=== PATIENT | female | born 1965 | race Caucasian/White ===

== ENCOUNTER 2017-03-18 16:07 | Emergency (ER) | payer SELFPAY ==
[~2017-03-18] VITALS: Ht 154.9 cm; Wt 70.3 kg
[2017-03-18 16:30] VITALS: BP 188/80
--- NOTE | 2017-03-18 19:24 | NUR ---
PT TAKEN TO TRIPPAY FROM [facility]
--- NOTE | 2017-03-18 19:32 | NUR ---
Rodger barney in ED - 03/18/17 at 1932 by DEXTER PT RETURN FROM XRAY TO LOBBY
--- NOTE | 2017-03-18 20:34 | NUR ---
PT TAKEN TO BED 7
--- NOTE | 2017-03-18 20:34 | NUR ---
Rodger barney in [facility] - 03/18/17 at 2034 by DEXTER PT SANTIAGO TO BED 7
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
--- NOTE | 2017-03-18 21:02 | NUR ---
PT RESTING IN BED AWATING FOR RESULTS NO S/S OF DSITRESS NOTED AT THE MOMENT. VSS.
[2017-03-18] MEDS ORDERED: KETOROLAC 60 MG/2 ML VIAL IM ONE (21:40)
--- NOTE | 2017-03-18 22:18 | NUR ---
Dr. Thibodeaux evaluating patient at bedside.
[2017-03-18 22:28] VITALS: BP 144/90
--- NOTE | 2017-03-18 22:28 | NUR ---
Patient discharged with v/s stable. Written and verbal after care instructions given and explained. Patient alert, oriented and verbalized understanding of instructions. Ambulatory with steady gait. All questions addressed prior to discharge. ID band removed. Patient advised to follow up with PMD THIS WK OR RETURN TO ER IF CONDITION WORSENS. Rx of NORCO, AND MOTRIN given. Patient educated on indication of medication including possible reaction and side effects. Opportunity to ask questions provided and answered.
== END 2017-03-18 22:28 | disposition home or self-care (01) ==
LOC: MED 16:07
DX: S13.4XXA Sprain of ligaments of cervical spine, initial encounter (principal); M25.512 Pain in left shoulder; E11.9 Type 2 diabetes mellitus without complications; I10 Essential (primary) hypertension; V43.62XA Car passenger injured in collision with other type car in traffic accident, initial encounter; Y93.I9 Activity, other involving external motion; Y92.488 Other paved roadways as the place of occurrence of the external cause; Y99.8 Other external cause status
CPT/HCPCS: 73030; 96372; 99284; J1885

== ENCOUNTER 2017-07-28 23:14 | Emergency (ER) | payer SELFPAY ==
[~2017-07-28] VITALS: Ht 149.9 cm; Wt 58.2 kg
[2017-07-28 23:26] VITALS: BP 144/88
[2017-07-28] MEDS ORDERED: ASPI81CT89 PO (23:33)
[2017-07-28] MEDS ORDERED: METF500T PO (23:33)
[2017-07-28] MEDS ORDERED: BENA20TA PO (23:34)
[2017-07-28 23:45] LABS: HEMATOCRIT 42.6 % (36-48); HEMOGLOBIN 14.5 g/dL (12.0-16.0); MEAN CORPUSCULAR HEMOGLOBIN 29 pg (27-31); MEAN CORPUSCULAR HGB CONC 34 g/dL (33-37); MEAN CORPUSCULAR VOLUME 86 fL (80-94); PLATELET COUNT (AUTO) 158 K/uL (140-450); RED BLOOD CELL COUNT(AUTO) 4.97 MIL/uL (4.20-5.40); RED CELL DISTRIBUTION WIDTH 12.2 % (11.6-13.7); WHITE BLOOD COUNT (AUTO) 8.6 K/uL (4.8-10.8)
[2017-07-28 23:55] LABS: EOSINOPHILS % (MANUAL) 1 % (0-4); LYMPHOCYTES % (MANUAL) 32 % (20-46); MONOCYTES % (MANUAL) 7 % (5-12)
[2017-07-28 23:56] LABS: ANION GAP 8.4 (8-16); CARBON DIOXIDE 31.5 mmol/L (21-32); CREATININE 0.5 mg/dL (0.6-1.3); POTASSIUM 3.9 mmol/L (3.5-5.1)
--- NOTE | 2017-07-29 00:05 | NUR ---
PT TAKEN TO CT
--- NOTE | 2017-07-29 00:15 | NUR ---
PT RETURN FROM CT TO BED 6
--- NOTE | 2017-07-29 00:44 | NUR ---
52/F PRESENTS TO ER C/O DIZZINESS AND HEADACHE. PMH DM, HTN. AA&O X4, DIZZINESS, BLURRED VISION. PT DENIES DOUBLE VISION. COUGH X1 DAY, NO SOB AT THIS TIME, BL LUNG SOUNDS CLEAR THROUGHOUT. NAUSEA, DENIES VOMIT AND DIARRHEA, ABDOMEN IS ROUND, SOFT, NON TENDER, BS ACTIVE X4. PT STATES HEADACHE IS 7/10, NON RADIATING, WITH PRESSURE, X1 DAY. PT IN BED WITH FAMILY AT BEDSIDE. ER MD NOTIFED OF PT STATUS.
--- NOTE | 2017-07-29 00:45 | NUR ---
Dr. Moon evaluating patient at bedside
--- NOTE | 2017-07-29 00:50 | NUR ---
PO MEDS GIVEN-NADR AT THIS TIME
[2017-07-29] MEDS ORDERED: MECLIZINE 25 MG TAB PO ONE (00:55)
[2017-07-29 01:16] VITALS: BP 141/82
--- NOTE | 2017-07-29 01:17 | NUR ---
Patient discharged with v/s stable. Written and verbal after care instructions given and explained. Patient alert, oriented and verbalized understanding of instructions. Ambulatory with steady gait. All questions addressed prior to discharge. ID band removed. Patient advised to follow up with PMD. Rx of ANTIVERT given. Patient educated on indication of medication including possible reaction and side effects. Opportunity to ask questions provided and answered.
== END 2017-07-29 01:17 | disposition home or self-care (01) ==
LOC: MED 23:14
DX: R42 Dizziness and giddiness (principal); R51 Headache; R11.0 Nausea; E11.9 Type 2 diabetes mellitus without complications; I10 Essential (primary) hypertension
CPT/HCPCS: 36415; 70450; 80048; 81002; 81025; 85025; 99285; J8597

== ENCOUNTER 2018-10-22 17:51 | Emergency (ER) | payer MEDICAID ==
[~2018-10-22] VITALS: Ht 157.5 cm; Wt 75.7 kg
[~2018-10-22 17:51] MED LIST: ASPI81CT89 PO; BENA20TA PO; METF500T PO
[2018-10-22 18:00] VITALS: BP 140/94
[2018-10-22 18:51] LABS: BASOPHILS # (AUTO) 0.1 K/uL (0.00-0.22); BASOPHILS % (AUTO) 0.7 % (0.0-2.0); EOSINOPHILS # (AUTO) 0.1 K/uL (0-0.4); EOSINOPHILS % (AUTO) 1.4 % (0.0-4.0); HEMATOCRIT 43.1 % (36-48); HEMOGLOBIN 14.4 g/dL (12.0-16.0); LYMPHOCYTES # (AUTO) 2.6 K/uL (2.5-16.5); LYMPHOCYTES % (AUTO) 31.1 % (20.5-51.1); MEAN CORPUSCULAR HEMOGLOBIN 29 pg (27-31); MEAN CORPUSCULAR HGB CONC 34 g/dL (33-37); MEAN CORPUSCULAR VOLUME 86.2 fL (80-94); MONOCYTES # (AUTO) 0.6 K/uL (0.8-1.0); MONOCYTES % (AUTO) 7.5 % (1.7-9.3); NEUTROPHILS # (AUTO) 4.9 K/uL (1.8-7.7); NEUTROPHILS % (AUTO) 59.3 % (42.2-75.2); PLATELET COUNT (AUTO) 171 K/uL (140-450); RED CELL DISTRIBUTION WIDTH 13.1 % (11.6-13.7); WHITE BLOOD COUNT (AUTO) 8.2 K/uL (4.8-10.8)
--- NOTE | 2018-10-22 19:10 | NUR ---
PATIENT AMBULATED TO BED 12
--- NOTE | 2018-10-22 19:10 | NUR ---
ASSUMED CARE OF PT AT THIS TIME. C/O RUQ ABDOMINAL PAIN W/ NAUSEA, NO VOMITING X 1 DAY. PT DENIES ANY DIARRHEA, CONSTIPATION, OR URINARY COMPLAINTS. AAOX4 WITH EVEN AND STEADY GAIT; PATIENT STATES PAIN OF 9/10; VSS; PATIENT POSITIONED FOR COMFORT; HOB ELEVATED; BEDRAILS UP X2; BED DOWN. ER MD MADE AWARE OF PT STATUS. WILL CONTINUE TO MONITOR.
[2018-10-22 19:25] LABS: ALBUMIN 3.8 g/dL (3.4-5.0); ANION GAP 6.9 (8-16); CARBON DIOXIDE 30.6 mmol/L (21-32); CREATININE 0.6 mg/dL (0.6-1.3); POTASSIUM 3.5 mmol/L (3.5-5.1); TOTAL BILIRUBIN 0.7 mg/dL (0.0-1.0)
[2018-10-22] MEDS ORDERED: NACL 0.9% 500 ML IV ONE (20:40)
[2018-10-22] MEDS ORDERED: KETOROLAC 30 MG/ML VIAL IVP ONE (20:40)
[2018-10-22] MEDS ORDERED: ONDANSETRON 4 MG/2 ML VIAL IVP ONE (20:40)
[2018-10-22 20:45] LABS: APPEARANCE,URINE CLEAR (CLEAR); BILIRUBIN,URINE NEGATIVE (NEGATIVE); BLOOD, URINE NEGATIVE (NEGATIVE); COLOR,URINE YELLOW (YELLOW); LEUKOCYTE ESTERASE ,URINE NEGATIVE (NEGATIVE); NITRITE, URINE NEGATIVE (NEGATIVE); PH,URINE 6.5 (5.0-9.0); UGLUCOSE NEGATIVE (NEGATIVE)
[2018-10-22] MEDS ORDERED: PANTOPRAZOLE 40 MG INJ VIAL IVP ONE (20:45)
--- NOTE | 2018-10-22 21:14 | NUR ---
Ultrasound at bedside.
[2018-10-22 22:45] VITALS: BP 138/91
--- NOTE | 2018-10-22 22:45 | NUR ---
Patient discharged with v/s stable. Written and verbal after care instructions given and explained. Patient alert, oriented and verbalized understanding of instructions. Ambulatory with steady gait. All questions addressed prior to discharge. ID band removed. Patient advised to follow up with PMD. Rx of ZOFRAN, TRAMADOL, AND MOTRIN given. Patient educated on indication of medication including possible reaction and side effects. Opportunity to ask questions provided and answered.
== END 2018-10-22 22:45 | disposition home or self-care (01) ==
LOC: MED 17:51
DX: K82.4 Cholesterolosis of gallbladder (principal); E11.9 Type 2 diabetes mellitus without complications; I10 Essential (primary) hypertension; Z79.82 Long term (current) use of aspirin; Z79.84 Long term (current) use of oral hypoglycemic drugs; Z79.899 Other long term (current) drug therapy
CPT/HCPCS: 36415; 76705; 80053; 81003; 81025; 82948; 83690; 84703; 85025; 96361; 96374; 96375; 99284; C9113; J1885; J2405; Q0092; J7030

== ENCOUNTER 2018-10-24 07:17 | Emergency (ER) | payer MEDICAID ==
[~2018-10-24] VITALS: Ht 147.3 cm; Wt 59.0 kg
[~2018-10-24 07:17] MED LIST changes: +ASPI-1718 PO; -ASPI81CT89 PO
--- NOTE | 2018-10-24 07:21 | NUR ---
PT AMBULATES TO BED 5
[2018-10-24 07:26] VITALS: BP 138/92
--- NOTE | 2018-10-24 07:32 | NUR ---
Pt. bib daughter w/ c/o epigastric burning pain, unable to tolerate any PO's x 3 days states she was seen in our ER Oct 22, 2018 rx zofran; unable to keep any pills down. Pt. has 8/10 burning epigastric pain that is non radiating. PT. has N/V ; denies any blood in vomit. Denies any fever or chills or pain upon urination at this time. Pt. states " i do eat a lot of spicy food". abd round and soft and non tender upon palpation. ER md made aware. vss. daughter at bedside. safety precautions in place. Will continue to monitor.
[2018-10-24] MEDS ORDERED: NACL 0.9% 1,000 ML IV SCH (07:38)
[2018-10-24] MEDS ORDERED: ONDANSETRON 4 MG/2 ML VIAL IVP ONE (07:40)
[2018-10-24] MEDS ORDERED: KETOROLAC 30 MG/ML VIAL IVP ONE (07:40)
[2018-10-24] MEDS ORDERED: DICYCLOMINE HCL LIQUID 20 MG, ALUMINUM HYD/MAG/SIMETHICONE 30 ML, LIDOCAINE VISCOUS 2% ... PO ONE ×3 (07:45)
[2018-10-24 08:03] LABS: BASOPHILS % (AUTO) 0.3 % (0.0-2.0); EOSINOPHILS % (AUTO) 0.1 % (0.0-4.0); HEMATOCRIT 42.1 % (36-48); HEMOGLOBIN 14.1 g/dL (12.0-16.0); LYMPHOCYTES # (AUTO) 0.9 K/uL (2.5-16.5); LYMPHOCYTES % (AUTO) 9.3 % (20.5-51.1); MEAN CORPUSCULAR HEMOGLOBIN 29 pg (27-31); MEAN CORPUSCULAR HGB CONC 34 g/dL (33-37); MEAN CORPUSCULAR VOLUME 86.9 fL (80-94); MONOCYTES # (AUTO) 0.3 K/uL (0.8-1.0); MONOCYTES % (AUTO) 3.2 % (1.7-9.3); NEUTROPHILS # (AUTO) 8.2 K/uL (1.8-7.7); NEUTROPHILS % (AUTO) 87.1 % (42.2-75.2); PLATELET COUNT (AUTO) 163 K/uL (140-450); RED BLOOD CELL COUNT(AUTO) 4.85 MIL/uL (4.20-5.40); WHITE BLOOD COUNT (AUTO) 9.4 K/uL (4.8-10.8)
[2018-10-24 08:12] LABS: ANION GAP 12.4 (8-16); CARBON DIOXIDE 29.1 mmol/L (21-32); CREATININE 0.9 mg/dL (0.6-1.3); POTASSIUM 3.5 mmol/L (3.5-5.1)
[2018-10-24] MEDS ORDERED: KETOROLAC 60 MG/2 ML VIAL IM ONE (08:14)
[2018-10-24 08:18] LABS: ALBUMIN 3.6 g/dL (3.4-5.0); BILIRUBIN,URINE NEGATIVE (NEGATIVE); BLOOD, URINE NEGATIVE (NEGATIVE); LEUKOCYTE ESTERASE ,URINE NEGATIVE (NEGATIVE); NITRITE, URINE NEGATIVE (NEGATIVE); PH,URINE 5.5 (5.0-9.0); TOTAL BILIRUBIN 0.7 mg/dL (0.0-1.0); UGLUCOSE TRACE (NEGATIVE)
[2018-10-24 08:19] LABS: APPEARANCE,URINE CLEAR (CLEAR); COLOR,URINE YELLOW (YELLOW)
[2018-10-24 09:06] LABS: RBC,URINE 0-5 (RARE) /HPF (0-5); WBC,URINE 0-5 (RARE) /HPF (0-5)
--- NOTE | 2018-10-24 09:27 | NUR ---
DR. FREDERICK AT BEDSIDE EVALUATING
[2018-10-24 09:45] VITALS: BP 128/67
--- NOTE | 2018-10-24 09:45 | NUR ---
Patient discharged with v/s stable. Written and verbal after care instructions given and explained. Patient alert, oriented and verbalized understanding of instructions. Ambulatory with steady gait. All questions addressed prior to discharge. ID band removed. Patient advised to follow up with PMD. Rx of PRILOSEC 40MG, PHENERGAN 25MG, NORCO 5/325MG given. Patient educated on indication of medication including possible reaction and side effects. Opportunity to ask questions provided and answered.
== END 2018-10-24 09:45 | disposition home or self-care (01) ==
LOC: MED 07:17
DX: R10.13 Epigastric pain (principal); R11.2 Nausea with vomiting, unspecified; E11.9 Type 2 diabetes mellitus without complications; I10 Essential (primary) hypertension; E03.9 Hypothyroidism, unspecified; Z79.84 Long term (current) use of oral hypoglycemic drugs; Z79.82 Long term (current) use of aspirin; Z79.899 Other long term (current) drug therapy
CPT/HCPCS: 36415; 80053; 81001; 81025; 82948; 83690; 85025; 96361; 96374; 96375; 99283; J1885; J2405; J7030

== ENCOUNTER 2019-04-03 09:45 | Emergency (ER) | payer MEDICAID ==
[~2019-04-03] VITALS: Ht 144.8 cm; Wt 59.6 kg
[2019-04-03 10:20] VITALS: BP 191/102
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
--- NOTE | 2019-04-03 11:03 | NUR ---
Patient ambulated to bed 3 with family. RN evaluating patient at bedside.
--- NOTE | 2019-04-03 11:11 | NUR ---
Dr. Ferrari evaluating patient at bedside.
[2019-04-03] MEDS ORDERED: IBUPROFEN 400 MG TAB PO ONE (11:20)
--- NOTE | 2019-04-03 12:39 | NUR ---
PT TO CT VIA [facility]
[2019-04-03 13:44] VITALS: BP 168/81
--- NOTE | 2019-04-03 13:45 | NUR ---
Patient discharged with v/s stable. Written and verbal after care instructions given and explained. Patient alert, oriented and verbalized understanding of instructions. Ambulatory with steady gait. All questions addressed prior to discharge. ID band removed. Patient advised to follow up with PMD. Rx of naproxyn/ norco given. Patient educated on indication of medication including possible reaction and side effects. Opportunity to ask questions provided and answered.
== END 2019-04-03 13:44 | disposition home or self-care (01) ==
LOC: MED 09:45
DX: S32.019A Unspecified fracture of first lumbar vertebra, initial encounter for closed fracture (principal); S89.92XA Unspecified injury of left lower leg, initial encounter; R10.9 Unspecified abdominal pain; M54.6 Pain in thoracic spine; I10 Essential (primary) hypertension; E11.9 Type 2 diabetes mellitus without complications; E03.9 Hypothyroidism, unspecified; Z79.84 Long term (current) use of oral hypoglycemic drugs; Z79.82 Long term (current) use of aspirin; Z79.899 Other long term (current) drug therapy; W01.0XXA Fall on same level from slipping, tripping and stumbling without subsequent striking against object, initial encounter; Y93.89 Activity, other specified; Y92.89 Other specified places as the place of occurrence of the external cause; Y99.8 Other external cause status
CPT/HCPCS: 72110; 72131; 73562; 99284

== ENCOUNTER 2019-12-08 20:29 | Emergency (ER) | payer MEDICAID ==
[~2019-12-08] VITALS: Ht 152.4 cm; Wt 79.4 kg
[~2019-12-08 20:29] MED LIST changes: -ASPI-1718 PO; +ASPI-1822 PO
[2019-12-08 20:50] VITALS: BP 164/78
[2019-12-08] MEDS ORDERED: TRANEXAMIC ACID 1,000 MG/10 ML VIAL MC ONE (21:25)
[2019-12-08] MEDS ORDERED: ACETAMINOPHEN EXTRA STRENGTH 500 MG TAB PO ONE (23:30)
[2019-12-09 00:36] VITALS: BP 161/58
== END 2019-12-08 22:27 | disposition home or self-care (01) ==
LOC: MED 20:29
DX: T65.91XA Toxic effect of unspecified substance, accidental (unintentional), initial encounter (principal); R04.0 Epistaxis; Y92.69 Other specified industrial and construction area as the place of occurrence of the external cause; E11.9 Type 2 diabetes mellitus without complications; I10 Essential (primary) hypertension; Z79.899 Other long term (current) drug therapy; Z79.84 Long term (current) use of oral hypoglycemic drugs; Z79.82 Long term (current) use of aspirin
CPT/HCPCS: 30901; 99284; J3490

== ENCOUNTER 2019-12-09 18:56 | Emergency (ER) | payer MEDICAID ==
[~2019-12-09] VITALS: Ht 142.2 cm; Wt 68.9 kg
[2019-12-09 19:01] VITALS: BP 156/73
--- NOTE | 2019-12-09 19:33 | NUR ---
54/F [place] SPEAKING S/P L NOSTRIL GAUZE PACKING FOLLOW UP FOR REMOVAL. HX HTN. NO SIGNS OF ACUTE DISTRESS AT THIS TIME. BED IN LOWEST POSITION. CALL LIGHT WITHIN REACH.
== END 2019-12-09 19:45 | disposition home or self-care (01) ==
LOC: MED 18:56
DX: R04.0 Epistaxis (principal); E11.9 Type 2 diabetes mellitus without complications; I10 Essential (primary) hypertension; Z79.82 Long term (current) use of aspirin; Z79.84 Long term (current) use of oral hypoglycemic drugs; Z79.899 Other long term (current) drug therapy
CPT/HCPCS: 99281

== ENCOUNTER 2020-07-30 17:50 | Emergency (ER) | payer MEDICAID ==
[~2020-07-30] VITALS: Ht 142.2 cm; Wt 61.7 kg
[2020-07-30 17:56] VITALS: BP 132/63
--- NOTE | 2020-07-30 18:06 | NUR ---
PT BIB SELF C/O PRURITIC RASHES ON RIGHT FLANK AND RIGHT ABDOMINAL AREA. PT NOTICES WATERY DISCHARGED. NO PAIN REPORTED. NO FEVER. NO OTHER MEMBERS OF HOUSEHOLD WITH RASHES. NO MEDICATIONS APPLIED OR TAKEN. VSS. ERMD MADE AWARE OF PT STATUS. PMH: DM, HTN, HYPOTHYROID MEDS: METFORMIN, BENAZEPIL, LEVOTHYROXINE NKA
[2020-07-30 18:55] VITALS: BP 132/63
--- NOTE | 2020-07-30 18:57 | NUR ---
Patient discharged with v/s stable. Written and verbal after care instructions given and explained. Patient alert, oriented and verbalized understanding of instructions. Ambulatory with steady gait. All questions addressed prior to discharge. ID band removed. Patient advised to follow up with PMD. Rx of ACYCLOVIR, NORCO, MOTRIN, PREDNISONE given. Patient educated on indication of medication including possible reaction and side effects. Opportunity to ask questions provided and answered.
== END 2020-07-30 18:57 | disposition home or self-care (01) ==
LOC: MED 17:50
DX: B02.9 Zoster without complications (principal); E11.9 Type 2 diabetes mellitus without complications; E03.9 Hypothyroidism, unspecified; I10 Essential (primary) hypertension; Z98.890 Other specified postprocedural states; Z79.899 Other long term (current) drug therapy
CPT/HCPCS: 99283

== ENCOUNTER 2021-03-24 21:57 | Emergency (ER) | payer MEDICAID ==
[~2021-03-24] VITALS: Ht 149.9 cm; Wt 59.0 kg
[2021-03-24 22:07] VITALS: BP 135/72
--- NOTE | 2021-03-24 22:09 | NUR ---
triaged and waiting in lobby.
--- NOTE | 2021-03-24 23:21 | NUR ---
Pt ambulated to chair C w/ steady gait.
--- NOTE | 2021-03-24 23:46 | NUR ---
d/c with VSS. d/c education given. opportunity to ask questions given and answered. no rx given.
== END 2021-03-24 23:46 | disposition home or self-care (01) ==
LOC: MED 21:57
DX: M79.604 Pain in right leg (principal); E11.9 Type 2 diabetes mellitus without complications; I10 Essential (primary) hypertension; E03.9 Hypothyroidism, unspecified; Z79.84 Long term (current) use of oral hypoglycemic drugs; Z79.82 Long term (current) use of aspirin; Z79.899 Other long term (current) drug therapy
CPT/HCPCS: 73590; 99283